=== PATIENT | female | born 1995 | race Caucasian/White ===

== ENCOUNTER 2018-06-09 09:44 | Inpatient (IN) | payer BC, MEDICAID ==
[2018-06-09] MEDS ORDERED: OXYTOCIN/DEXTROSE 5%-WATER 30 UNITS/500 ML BAG IV ONE (09:49)
[2018-06-09] MEDS ORDERED: MISOPROSTOL 100 MCG TABLET VG PRN (09:49)
[2018-06-09] MEDS ORDERED: BUTORPHANOL TARTRATE 2 MG/ML VIAL IV PRN (09:49)
[2018-06-09 10:11] LABS: Hematocrit 32.6 % (37.0-47.0); Hemoglobin 10.6 gm/dL (12.5-16.0); Mean Cell Volume 84.7 fl (78-100); Mean Corpuscular Hemoglobin 27.5 pg (27-31); Mean Corpuscular Hgb Conc 32.5 g/dl (32-36); Mean Platelet Volume 12.9 fl (8-12.5); Neutrophil # 8.8 K/mm3 (1.3-6.0); Neutrophil % 73.2 % (42-75.0); Platelet Count 196 K/mm3 (150-450); Red Blood Count 3.85 M/mm3 (4.2-5.4); Red Cell Distribution Width 13.2 % (11.5-14.0)
--- NOTE | 2018-06-09 17:31 | PN ---
Subjective - Date and Time Seen Date: 06/09/18 Subjective Narrative: labor note 23 yo, at 39.2 weeks. elective induction. cervix 3-4 cm/50%/-2 this morning before induction. GBS negative. pitocin started at about 10:30 and now at 12 mu/min. Contraction: every 2-3 min FHR: ressuring, 140s with accels and no decel. Cervix: 5-6 cm, 75% and -2. plan: continue pitocin as tolerated. may have epidural if desired. Clifford Garibay MD Objective - Vitals Vitals: Last Vital Signs Temp 36.4 C 06/09/18 10:00 Pulse 117 H 06/09/18 10:00 Resp 18 06/09/18 10:00 BP 140/82 H 06/09/18 10:00 Pulse Ox 99 06/09/18 10:00 - Abnormal Lab Findings Abnormal Lab Findings: Abnormal Lab Results 06/09/18 Range/Units 10:06 WBC 12.0 H (4.0-10.5) K/mm3 RBC 3.85 L (4.2-5.4) M/mm3 Hgb 10.6 L (12.5-16.0) gm/dL Hct 32.6 L (37.0-47.0) % MPV 12.9 H (8-12.5) fl Immature Gran % (Auto) 0.60 H (0.001-0.429) % Immature Gran # (Auto) 0.07 H (0.000-0.0310) K/mm3 Neutrophils # 8.8 H (1.3-6.0) K/mm3
[2018-06-09] MEDS: RINGER'S SOLUTION,LACTATED 1,000 ML IV PRN (18:08)
[2018-06-09] MEDS ORDERED: CALCIUM CARBONATE 500 MG TAB.CHEW PO PRN (21:41)
[2018-06-09] MEDS: ACETAMINOPHEN 500 MG TABLET PO PRN (22:10)
[2018-06-10] MEDS: RINGER'S SOLUTION,LACTATED 1,000 ML IV PRN (02:36)
[2018-06-10] MEDS: ACETAMINOPHEN 500 MG TABLET PO PRN ×2 (02:38→10:23)
[2018-06-10] MEDS ORDERED: DEXTROSE 5%-LACTATED RINGERS 1,000 ML IV PRN (08:18)
[2018-06-10] MEDS: RINGER'S SOLUTION,LACTATED 1,000 ML IV ONE ×2 (13:10→14:56)
[2018-06-10] MEDS ORDERED: ONDANSETRON HCL/PF 2 MG/ML VIAL IV PRN (13:56)
[2018-06-10] MEDS ORDERED: NALOXONE HCL 1 MG/1 ML SYRG IV PRN (13:56)
[2018-06-10] MEDS ORDERED: BUPIVACAINE HCL/0.9 % NACL/PF 250 ML EP PRN (13:56)
[2018-06-10] MEDS ORDERED: fentaNYL CITRATE/PF 50 MCG/ML AMPUL IT SCH (14:00)
[2018-06-10] MEDS ORDERED: LIDOCAINE HCL 50 ML VIAL ONE (14:07)
--- NOTE | 2018-06-10 15:25 | ANES ---
Post Anesthesia Assessment - Vital Signs Vitals: Last Vital Signs Temp 36.4 C 06/09/18 10:00 Pulse 117 H 06/09/18 10:00 Resp 18 06/09/18 10:00 BP 140/82 H 06/09/18 10:00 Pulse Ox 99 06/09/18 10:00 Airway Patency: Normal - Mental Status Level Of Consciousness: Awake - Pain Level Pain Score: 2 - N/V Assessment Nausea/Vomiting Presence: None Dehydration:: No
--- NOTE | 2018-06-10 15:25 | ANES ---
Post Anesthesia Discharge - Transfer of Care Transfer of Care handoff given to nurse: Yes - Anesthesia Post Op Note Anesthesia Post Op Note: Care transferred to OB RN
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
--- NOTE | 2018-06-10 15:27 | ANES ---
Anesthesia Procedure Note Procedure Note: ANESTHESIA PROCEDURE NOTE Date of Procedure: [] 06/10/2018 Time of procedure:[]. 1410 Performed by: Luís Sanchez CRNA Counsellors: None. Preprocedure diagnosis: Active labor. Post procedure diagnosis: Same. Procedure: Insertion of labor epidural. Indications: The patient is a [23] -year-old [multigravida] female in active labor requesting labor epidural for pain management. Findings: See below. Details of the procedure: The patient was placed in a sitting position. Back was prepped with DuraPrep. Patient was then draped in a sterile fashion. Lidocaine 1% was infiltrated to the skin and subcutaneous tissues at the level of the L3 4 interspace. The epidural space was identified using a 18-gauge Tuohy needle with [id number] technique. 20 mcg fentanyl was given intrathecally using a 27 ga. spinal needle. Epidural catheter was inserted without difficulty. Negative test dose was elicited using 5 mL of 1.5% preservative-free lidocaine plus epinephrine 1 200,000. The epidural catheter was then taped and secured in place. EBL: Minimal. Fluids: N/A. Specimen: N/A. Post procedure condition: The patient tolerated the procedure well. No complications were noted. Thank you for this consultation. Frye CRNA
[2018-06-10] MEDS ORDERED: MISOPROSTOL 200 MCG TABLET RC ONE (15:42)
[2018-06-10] MEDS ORDERED: LIDOCAINE HCL 50 ML VIAL IJ PRN (15:47)
[2018-06-10] MEDS ORDERED: HYDROCORTISONE 30 APPL TUBE TP PRN (16:06)
[2018-06-10] MEDS ORDERED: BENZOCAINE/MENTHOL 81 SPRAY CAN TP PRN (16:06)
[2018-06-10] MEDS ORDERED: BISACODYL 10 MG SUPP.RECT RC PRN (16:06)
[2018-06-10] MEDS ORDERED: SENNOSIDES 8.6 MG TABLET PO PRN (16:06)
[2018-06-10] MEDS ORDERED: GLYCERIN/WITCH HAZEL LEAF 40 APPL BOX TP PRN (16:06)
[2018-06-10] MEDS ORDERED: HYDROcodone/ACETAMINOPHEN 1 EACH TABLET PO PRN (16:06)
[2018-06-10] MEDS ORDERED: OXYTOCIN/DEXTROSE 5%-WATER 30 UNITS/500 ML BAG IV ONE (16:06)
[2018-06-10] MEDS ORDERED: METHYLERGONOVINE MALEATE 0.2 MG/ML AMPUL IM ONE (16:33)
--- NOTE | 2018-06-10 16:35 | OR ---
Operative Report - Dictated Report Narrative: Spontaneous Vaginal Delivery Note: 23 yo, , 39.3 weeks elective induction of labor induction and augmentation: pitocin GBS negative Analgesia: epidural Progressed to complete without complications. Perineum cleaned with betadine. Pushed for about an hour. Head delivered in JEFFERY over the perineum. Right nuchal cord x 1. The anterior shoulder delivered, followed by the posterior shoulder and the rest of the baby. Baby cried at perineum. Baby placed on maternal abdomen for drying and care by the nursing. Cord was clamped at one minute of life and cut by the father of baby. Cord blood was obtained. Placenta delivered intact with a 3 vessel cord. Cytotec 800 mcg placed rectally due to long induction and large baby. Mother and baby tolerated the delivery well. Laceration: none. EBL 500 ml. : male, 4084 grams, 9 lbs. 8/9. Time of delivery: 15:30 Clifford Garibay MD
[2018-06-10] MEDS ORDERED: fentaNYL CITRATE/PF 50 MCG/ML AMPUL IM ONE (16:44)
[2018-06-10 17:10] LABS: Hematocrit 33.7 % (37.0-47.0); Hemoglobin 10.9 gm/dL (12.5-16.0); Mean Cell Volume 85.8 fl (78-100); Mean Corpuscular Hemoglobin 27.7 pg (27-31); Mean Corpuscular Hgb Conc 32.3 g/dl (32-36); Platelet Count 213 K/mm3 (150-450); Red Blood Count 3.93 M/mm3 (4.2-5.4); Red Cell Distribution Width 13.2 % (11.5-14.0); White Blood Count 28.5 K/mm3 (4.0-10.5)
[2018-06-10 17:40] LABS: Total Cells Counted 100
[2018-06-10 17:52] LABS: Atypical (Reactive) Lymph 1 % (0-2); Band 2 % (0-2.0); Lymphocyte 5 % (20-51); Monocyte 3 % (0-9); Neutrophil 89 % (42-75); Neutrophil # 25.4 K/mm3 (1.3-6.0)
[2018-06-10 17:53] LABS: Giant Platelets Trace
[2018-06-10 17:54] LABS: Anisocytosis Trace
[2018-06-10] MEDS ORDERED: ceFAZolin SODIUM/DEXTROSE,ISO 2 GM/50 ML BAG IV SCH (18:00)
[2018-06-10] MEDS: DOCUSATE SODIUM 100 MG CAPSULE PO SCH (23:02)
[2018-06-11] MEDS: IBUPROFEN 800 MG TABLET PO PRN ×2 (01:27→20:31)
[2018-06-11 07:14] LABS: Hematocrit 26.1 % (37.0-47.0); Hemoglobin 8.2 gm/dL (12.5-16.0); Mean Cell Volume 85.6 fl (78-100); Mean Corpuscular Hemoglobin 26.9 pg (27-31); Mean Corpuscular Hgb Conc 31.4 g/dl (32-36); Mean Platelet Volume 13.1 fl (8-12.5); Neutrophil # 8.5 K/mm3 (1.3-6.0); Neutrophil % 69.4 % (42-75.0); Platelet Count 181 K/mm3 (150-450); Red Blood Count 3.05 M/mm3 (4.2-5.4); Red Cell Distribution Width 13.3 % (11.5-14.0); White Blood Count 12.2 K/mm3 (4.0-10.5)
[2018-06-11] MEDS: DOCUSATE SODIUM 100 MG CAPSULE PO SCH ×2 (14:05→20:31)
--- NOTE | 2018-06-11 17:39 | PN ---
Subjective - Date and Time Seen Date: 06/11/18 Subjective Narrative: day 1, s/p with bleeding 1000 ml. CBC this morning showed hgb 8.2 from 10.6 prior to delivery. feels tired, but otherwise well. ambulating and pain controlled. . normal lochia. Objective - Vitals Vitals: Last Vital Signs Temp 36.2 C 06/11/18 13:05 Pulse 73 06/11/18 13:05 Resp 16 06/11/18 13:05 BP 116/61 06/11/18 13:05 Pulse Ox 97 06/11/18 13:05 - Abnormal Lab Findings Abnormal Lab Findings: Abnormal Lab Results 06/10/18 06/11/18 Range/Units 17:00 06:50 WBC 28.5 H D 12.2 H D (4.0-10.5) K/mm3 RBC 3.93 L 3.05 L (4.2-5.4) M/mm3 Hgb 10.9 L 8.2 L (12.5-16.0) gm/dL Hct 33.7 L 26.1 L (37.0-47.0) % MCH 26.9 L (27-31) pg MCHC 31.4 L (32-36) g/dl MPV 13.0 H 13.1 H (8-12.5) fl Immature Gran % (Auto) 0.70 H (0.001-0.429) % Immature Gran # (Auto) 0.09 H (0.000-0.0310) K/mm3 Neutrophils % (Manual) 89 H (42-75) % Lymphocytes % (Manual) 5 L (20-51) % Neutrophils # 8.5 H (1.3-6.0) K/mm3 Neutrophils # (Manual) 25.4 H (1.3-6.0) K/mm3 Lymphocytes # (Manual) 1.4 L (1.5-3.5) k/mm3 - Exam Constitutional: Present: Alert, Oriented x3, Cooperative Respiratory: Present: no respiratory distress Cardiovascular/Chest: Present: normal peripheral pulses Abdomen: Present: soft, nontender, nondistended, other - fundus one finger above umbilicus, firm Extremity: Present: normal range of motion, no pedal edema, no calf tenderness Skin Exam: Present: normal color, warm/dry, no cyanosis Appearance: Present: appropriate appearance Eye contact: Present: cooperative, good eye contact, normal speech Assessment/Plan Plan Narrative: A: day 1, s/p with bleeding and anemia, stable. Plan: rountine care. ambulation encouraged. anticipate discharge tomorrow. Clifford Garibay MD
[2018-06-12 06:51] VITALS: BP 110/57
[2018-06-12] MEDS ORDERED: FERROUS SULFATE 325 MG TABLET PO SCH (09:00)
[2018-06-12] MEDS: DOCUSATE SODIUM 100 MG CAPSULE PO SCH (09:17)
== END 2018-06-12 14:30 | disposition home or self-care (01) | DRG 998 ==
LOC: OB 09:44
PROVIDERS: ADMIT Obstetrics & Gynecology; ATTEND Obstetrics & Gynecology
CPT/HCPCS: 36415; 59025; 85007; 85025; 86850; 86900